=== PATIENT | female | born 1930 | race Caucasian/White ===

== ENCOUNTER 2017-08-30 06:10 | Emergency (ER) | payer MEDICARE, MEDICAID ==
[~2017-08-30] VITALS: Ht 154.9 cm; Wt 54.4 kg
[~2017-08-30 06:10] MED LIST: AC325T PO; AC500T PO; ACIPHEX 20MG; AGGRENOX; ALPR.25T; ASP81TEC PO; ATN25T; ATRV10T; CALC3.7S2 NS; CHOL2000 PO; CLC200NA2 NS; DCS100C PO; DNPZ10T PO; DPAS20025 PO; HYDR-34 PO; HYDR1TAB PO; LVT.025T PO; LVT.05T PO; MAGNESIUM HYDROXIDE; MEMA10TA PO; METO-354; METO5TAB2 PO; NF-ESOM40C; OMEP20CA12 PO; POLY17PO23 GT; POTA8CAP9 PO; SENN1TAB76 PO; SIMV20TA3 PO; SITA100T PO; STOOL SOFTENER 100MG; TRAM50TA2 PO
[2017-08-30] MEDS ORDERED: TRAM50TA2 (06:22)
[2017-08-30] MEDS ORDERED: LINA5TAB (06:22)
[2017-08-30] MEDS ORDERED: LEVO100T7 (06:22)
[2017-08-30] MEDS ORDERED: MIDAZOLAM 2 MG/2 ML (VERSED) VIAL ONE (06:49)
--- NOTE | 2017-08-30 06:49 | ED Neurological Problem ---
General Chief Complaint: Neurological Problems Stated Complaint: SEIZURE Nursing Triage Note: pt brought in by ems with complaint of possible seizure. per NH pt was in wheelchair and started "convulsing". the aid taking care of pt was unsure whether it was seizure or not. pt does not have have known hx of seizures. Nursing Sepsis Screen: No Definite Risk Source: EMS Exam Limitations: clinical condition History of Present Illness Date Seen by Provider: Aug 30, 2017 Time Seen by Provider: 06:26 Initial Comments 86-year-old white female presents from [facility] after possible seizure from the [facility]. 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 The patient's blood pressure was elevated earlier this morning. According to the fdc records the patient has no history of seizure disorder. Patient's family is here and confirms that the patient is a DO NOT RESUSCITATE. They want the patient to have comfort care only. Patient is under the care of Dr. CHOI. Allergies and Home Medications Allergies Coded Allergies: NKANo Known Allergies (Verified Allergy, Unknown, 10/22/07) midazolam (Unverified Allergy, Unknown, 04/06/10) Home Medications Acetaminophen 325 Mg Tablet, 1-2 TAB PO PRN, (Reported) PAIN OR FEVER Aspirin 81 Mg Tabec, 81 MG PO DAILY, (Reported) Calcitonin 3.7 Ml Barrett.pump, 1 SPRAY NS DAILY, (Reported) Cholecalciferol 2,000 Unit Capsule, 2,000 UNIT PO DAILY, (Reported) Dipyridamole/Aspirin 1 Ea Cap, 1 EA PO DAILY, (Reported) Docusate Sodium 100 Mg Capsule, 100 MG PO HS, (Reported) Levothyroxine Sodium 25 Mcg Tablet, 1 TAB PO DAILY, (Reported) Levothyroxine Sodium 50 Mcg Tablet, 1 TAB PO DAILY, (Reported) Metoclopramide Hcl 5 Mg Tablet, 5 MG PO ACHS, (Reported) Omeprazole 20 Mg Capsule.dr, 20 MG PO DAILY, (Reported) Potassium Chloride 8 Meq Capsule.sa, 8 MEQ PO DAILY, (Reported) Senna 1 Ea Tablet, 1 EA PO BID, (Reported) Simvastatin 20 Mg Tablet, 20 MG PO DAILY, (Reported) Sitagliptin Phosphate 100 Mg Tablet, 1 EACH PO DAILY, (Reported) Tramadol Hcl 50 Mg Tablet, 50 MG PO TID, (Reported) Patient Home Medication List Home Medication List Reviewed: Yes Review of Systems Constitutional: no symptoms reported Eyes: No Symptoms Reported Ears, Nose, Mouth, Throat: no symptoms reported Respiratory: no symptoms reported Cardiovascular: no symptoms reported Genitourinary: no symptoms reported : No Musculoskeletal: no symptoms reported, other (chronic contractures) Skin: no symptoms reported Psychiatric/Neurological: See HPI, Other (previous strokes) Endocrine: No Symptoms Reported Hematologic/Lymphatic: No Symptoms Reported Past Xxyraak-Zrrspv-Fyvllm Hx Past Med/Social Hx: Reviewed Nursing Past Med/Soc Hx Patient Social History Alcohol Use: Denies Use Recreational Drug Use: No Smoking Status: Never a Smoker Recent Foreign Travel: No Contact w/Someone Who Travel: No Recent Infectious Disease Expo: No Recent Hopitalizations: Yes Immunizations Up To Date Tetanus Booster (TDap): Unknown PED Vaccines UTD: Yes Date of Pneumonia Vaccine: Jan 12, 2008 Date of Influenza Vaccine: Jan 11, 2011 Past Medical History Surgeries: Yes Respiratory: No Cardiac: No Neurological: Yes Reproductive Disorders: No Gastrointestinal: No Musculoskeletal: Yes (INGUINAL HERNIA REPAIR RIGHT SIDE) Endocrine: Yes Psychosocial: Yes (ALZHIEMERS) Blood Disorders: No Physical Exam Vital Signs Vital Signs - First Documented 08/30/17 06:10 Temp 98.5 Pulse 88 Resp 20 B/P (MAP) 107/ Pulse Ox 96 O2 Delivery Room Air O2 Flow Rate 150.00 Capillary Refill : Less Than 3 Seconds General Appearance: no apparent distress, other (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 I was not possible to do an adequate oral exam on the patient. No active bleeding was noted during her evaluation in the emergency department.) Neck: other (the patient's neck is nontender but it is stiff as is the rest of her back and extremities from contractures.) Respiratory: lungs clear, normal breath sounds Cardiovascular: normal peripheral pulses, regular rate, rhythm Gastrointestinal: normal bowel sounds, non tender, soft Genital/Rectal: other (there is a normal external genital exam. Catheter urine was obtained which was cloudy. The rectal exam was normal. The patient' s rectal exam was normal.) Back: other (2 small bruises were noted over the posterior pelvis over the SI joints. These were old in approximately the size of quarters.) Extremities: other (4 extremity contractures) Neurologic/Psychiatric: other (patient's neurological exam was very limited. However the patient was awake and responded to verbal stimuli. She was nonverbal.) Skin: normal color, warm/dry Progress/Results/Core Measures Results/Orders Lab Results Laboratory Tests Test 08/30/17 06:19 08/30/17 06:52 Range/Units Glucometer 134 H 70-110 MG/DL White Blood Count 12.4 H 4.3-11.0 10^3/uL Red Blood Count 4.36 4.35-5.85 10^6/uL Hemoglobin 13.6 11.5-16.0 G/DL Hematocrit 41 35-52 % Mean Corpuscular Volume 95 80-99 FL Mean Corpuscular Hemoglobin 31 25-34 PG Mean Corpuscular Hemoglobin Concent 33 32-36 G/DL Red Cell Distribution Width 12.8 10.0-14.5 % Platelet Count 265 130-400 10^3/uL Mean Platelet Volume 11.0 H 7.4-10.4 FL Neutrophils (%) (Auto) 79 H 42-75 % Lymphocytes (%) (Auto) 14 12-44 % Monocytes (%) (Auto) 5 0-12 % Eosinophils (%) (Auto) 1 0-10 % Basophils (%) (Auto) 0 0-10 % Neutrophils # (Auto) 9.8 H 1.8-7.8 X 10^3 Lymphocytes # (Auto) 1.8 1.0-4.0 X 10^3 Monocytes # (Auto) 0.7 0.0-1.0 X 10^3 Eosinophils # (Auto) 0.1 0.0-0.3 10^3/uL Basophils # (Auto) 0.0 0.0-0.1 10^3/uL Prothrombin Time 12.9 12.2-14.7 SEC INR Comment 1.0 0.8-1.4 Urine Color YELLOW Urine Clarity VERY CLOUDY H Urine pH 6 5-9 Urine Specific [place] 1.025 H 1.016-1.022 Urine Protein 2+ H NEGATIVE Urine Glucose (UA) NEGATIVE NEGATIVE Urine Ketones NEGATIVE NEGATIVE Urine Nitrite POSITIVE H NEGATIVE Urine Bilirubin NEGATIVE NEGATIVE Urine Urobilinogen 1 NORMAL MG/DL Urine Leukocyte Esterase NEGATIVE NEGATIVE Urine RBC (Auto) 3+ H NEGATIVE Urine RBC RARE /HPF Urine WBC RARE /HPF Urine Squamous Epithelial Cells 5-10 /HPF Urine Crystals NONE /LPF Urine Bacteria LARGE H /HPF Urine Casts NONE /LPF Urine Mucus NEGATIVE /LPF Urine Culture Indicated YES Sodium Level 138 135-145 MMOL/L Potassium Level 4.2 3.6-5.0 MMOL/L Chloride Level 104 98-107 MMOL/L Carbon Dioxide Level 22 21-32 MMOL/L Anion Gap 12 5-14 MMOL/L Blood Urea Nitrogen 27 H 7-18 MG/DL Creatinine 0.73 0.60-1.30 MG/DL Estimat Glomerular Filtration Rate > 60 BUN/Creatinine Ratio 37 Glucose Level 147 H 70-105 MG/DL Calcium Level 9.4 8.5-10.1 MG/DL Total Bilirubin 0.5 0.1-1.0 MG/DL Aspartate Amino Transf (AST/SGOT) 22 5-34 U/L Alanine Aminotransferase (ALT/SGPT) 17 0-55 U/L Alkaline Phosphatase 78 40-136 U/L Troponin I < 0.30 <0.30 NG/ML Total Protein 7.0 6.4-8.2 GM/DL Albumin 4.2 3.2-4.5 GM/DL My Orders Orders - AYSHA LINDQUIST MD Ct Head Wo (08/30/17 06:22) Cbc With Automated Diff (08/30/17 06:22) Comprehensive Metabolic Panel (08/30/17 06:22) Ua Culture If Indicated (08/30/17 06:22) Protime With Inr (08/30/17 06:22) Ekg Tracing (08/30/17 06:22) Troponin I (08/30/17 06:22) Midazolam Injection (Versed Injection) (08/30/17 06:49) Chest 1 View, Ap/Pa Only (08/30/17 06:50) Urine Culture (08/30/17 06:52) Ceftriaxone Injection (Rocephin Injectio (08/30/17 08:45) Vital Signs/I&O 08/30/17 08/30/17 06:10 08:02 Temp 98.5 Pulse 88 77 Resp 20 18 B/P (MAP) 107/ 170/89 (116) Pulse Ox 96 97 O2 Delivery Room Air Room Air O2 Flow Rate 150.00 Progress Progress Note : Time: 08:48 Progress Note The patient's workup in the emergency department demonstrated an unremarkable CT for acute pathology. The patient's chest x-ray was grossly normal. Patient' s laboratory evaluation demonstrated evidence of an acute UTI. I discussed treatment options with the family. It was their wish the patient be allowed to return to the [facility] and she will be more comfortable there. 2 g of Rocephin were given IV. I'll write a prescription for Macrobid for the patient. The patient has recently started Ultram for pain. I recommended we stop the Ultram until Dr. CHOI had a chance to consider whether to continue it. Departure Impression Primary Impression: UTI (urinary tract infection) Qualified Codes: N30.00 - Acute cystitis without hematuria Additional Impression: Seizure Disposition: HOME, SELF-CARE Condition: Improved Departure-Patient Inst. Decision time for Depature: 08:52 Referrals: HILARY CHOI DO (PCP/Family) Primary Care Physician Patient Instructions: Acute Cystitis (DC), Epilepsy in Adults Add. Discharge Instructions: Macrobid as prescribed. Close follow-up Dr. Choi. Stop Ultram until cleared by Dr. Choi. Return if any problems. All discharge instructions reviewed with patient and/or family. Voiced understanding. AYSHA LINDQUIST MD Aug 30, 2017 06:49
[2017-08-30 07:01] LABS: BILIRUBIN,URINE NEGATIVE (NEGATIVE); CLARITY,URINE VERY CLOUDY; COLOR,URINE YELLOW; GLUCOSE, URINE (UA) NEGATIVE (NEGATIVE); KETONES,URINE NEGATIVE (NEGATIVE); LEUKOCYTE ESTERASE ,URINE NEGATIVE (NEGATIVE); NITRITE,URINE POSITIVE (NEGATIVE); PH,URINE 6 (5-9); PROTEIN,URINE 2+ (NEGATIVE); UROBILINOGEN,URINE 1 MG/DL (NORMAL)
[2017-08-30 07:05] LABS: BASOPHILS % (AUTO) 0 % (0-10); EOSINOPHILS # (AUTO) 0.1 10^3/uL (0.0-0.3); EOSINOPHILS % (AUTO) 1 % (0-10); HEMATOCRIT 41 % (35-52); HEMOGLOBIN 13.6 G/DL (11.5-16.0); LYMPHOCYTES # (AUTO) 1.8 X 10^3 (1.0-4.0); LYMPHOCYTES % (AUTO) 14 % (12-44); MEAN CORPUSCULAR HEMOGLOBIN 31 PG (25-34); MEAN CORPUSCULAR HGB CONC 33 G/DL (32-36); MEAN CORPUSCULAR VOLUME 95 FL (80-99); MONOCYTES # (AUTO) 0.7 X 10^3 (0.0-1.0); MONOCYTES % (AUTO) 5 % (0-12); NEUTROPHILS # (AUTO) 9.8 X 10^3 (1.8-7.8); NEUTROPHILS % (AUTO) 79 % (42-75); PLATELET COUNT 265 10^3/uL (130-400); RED BLOOD COUNT 4.36 10^6/uL (4.35-5.85); RED CELL DISTRIBUTION WIDTH 12.8 % (10.0-14.5); WHITE BLOOD COUNT 12.4 10^3/uL (4.3-11.0)
[2017-08-30 07:22] LABS: ALANINE AMINOTRANSFERASE 17 U/L (0-55); ALBUMIN 4.2 GM/DL (3.2-4.5); ALKALINE PHOSPHATASE 78 U/L (40-136); BILIRUBIN,TOTAL 0.5 MG/DL (0.1-1.0); BUN/CREATININE RATIO 37; CALCIUM 9.4 MG/DL (8.5-10.1); CARBON DIOXIDE 22 MMOL/L (21-32); CHLORIDE 104 MMOL/L (98-107); CREATININE SERUM 0.73 MG/DL (0.60-1.30); GFR ESTIMATED > 60; GLUCOSE 147 MG/DL (70-105); POTASSIUM 4.2 MMOL/L (3.6-5.0); SODIUM 138 MMOL/L (135-145)
[2017-08-30 07:41] LABS: BACTERIA,URINE LARGE /HPF; RBC,URINE RARE /HPF; WBC,URINE RARE /HPF
[2017-08-30 07:44] LABS: PROTHROMBIN TIME PATIENT 12.9 SEC (12.2-14.7)
[2017-08-30 08:02] VITALS: BP 170/89
--- NOTE | 2017-08-30 08:09 | Diagnostic Imaging Report ---
PROCEDURE: CT head without contrast. TECHNIQUE: Multiple contiguous axial images were obtained through the brain without the use of intravenous contrast. INDICATION: Seizure COMPARISON: 04/04/2010 FINDINGS: The ventricles and cortical sulci are diffusely prominent. There is no midline shift or mass effect identified. There is no extra axial or intraparenchymal hemorrhage seen. Focal areas of decreased attenuation are seen in the subcortical and periventricular white matter. These likely represent chronic small vessel ischemic changes. Small lacunar infarct is noted in the right basal ganglia. No CT evidence of acute territorial ischemia seen. The bony calvarium is intact. The paranasal sinuses are clear. IMPRESSION: 1. No acute intracranial hemorrhage. No CT evidence of acute territorial ischemia. 2. Findings of chronic small vessel ischemic disease. 3. Marked generalized parenchymal volume loss. Dictated by: Dictated on workstation # [id number]
--- NOTE | 2017-08-30 08:10 | Diagnostic Imaging Report ---
Indication: Altered mental status, seizure like episode. Discussion: Single portable supine view of the chest was obtained. The patient's hand is overlying the right chest which does limit evaluation. Normal heart size. Elevated right hemidiaphragm. No focal consolidation, pleural fluid, or pneumothorax. Impression: 1. Negative limited chest. Dictated by: Dictated on workstation # [id number]
[2017-08-30] MEDS ORDERED: cefTRIAXone INJECTION 2,000 MG in NS (IVPB) 50 ML IV ONE (08:45)
[2017-08-30 10:48] VITALS: BP 129/72
--- OUTSIDE RECORDS SUMMARY | 2017-08-30 16:09 | XMS REPORT | Continuity of Care Document ---
Author Author [facility] Organization [facility] Address Unknown Phone Unavailable Allergies There is no data. Medications There is no data. Problems There is no data. Procedures There is no data. Results There is no data. Encounters ACCT No. Visit Date/Time Discharge Status Pt. Type Provider Facility Loc./Unit Complaint [id number] 08/14/2012 15:38:00 08/14/2012 23:59:59 CLS Outpatient
== END 2017-08-30 10:48 | disposition home or self-care (01) ==
LOC: EDUNIT# 06:10 → ER 06:11
DX: G62.9 Polyneuropathy, unspecified (principal); N39.0 Urinary tract infection, site not specified; G30.9 Alzheimer's disease, unspecified; F02.80 Dementia in other diseases classified elsewhere, unspecified severity, without behavioral disturbance, psychotic disturbance, mood disturbance, and anxiety; Z79.82 Long term (current) use of aspirin; Z88.4 Allergy status to anesthetic agent; Z66 Do not resuscitate; Z98.890 Other specified postprocedural states
CPT/HCPCS: 36415; 70450; 71045; 80053; 81000; 82962; 84484; 85025; 85610; 87088; 87186; 93005; 96365

== ENCOUNTER 2017-09-01 09:39 | Emergency (ER) | payer MEDICARE, MEDICAID ==
[~2017-09-01] VITALS: Ht 154.9 cm; Wt 54.4 kg
[~2017-09-01 09:39] MED LIST changes: +LEVO100T7; +LINA5TAB; +TRAM50TA2
--- OUTSIDE RECORDS SUMMARY | 2017-09-01 09:45 | XMS REPORT | Continuity of Care Document ---
Author Author [facility] Organization [facility] Address Unknown Phone Unavailable Allergies There is no data. Medications There is no data. Problems There is no data. Procedures There is no data. Results Test Result Range Capillary blood glucose measurement by glucometer (mass/volume) - 08/30/17 06: 19 Capillary blood glucose measurement by glucometer (mass/volume) 134 mg/dL 70-110 Complete blood count (CBC) with automated white blood cell (WBC) differential - 08/30/17 06:52 Blood leukocytes automated count (number/volume) 12.4 10*3/uL 4.3-11.0 Blood erythrocytes automated count (number/volume) 4.36 10*6/uL 4.35-5.85 Venous blood hemoglobin measurement (mass/volume) 13.6 g/dL 11.5-16.0 Blood hematocrit (volume fraction) 41 % 35-52 Automated erythrocyte mean corpuscular volume 95 [foz_us] 80-99 Automated erythrocyte mean corpuscular hemoglobin (mass per erythrocyte) 31 pg 25-34 Automated erythrocyte mean corpuscular hemoglobin concentration measurement ( mass/volume) 33 g/dL 32-36 Automated erythrocyte distribution width ratio 12.8 % 10.0-14.5 Automated blood platelet count (count/volume) 265 10*3/uL 130-400 Automated blood platelet mean volume measurement 11.0 [foz_us] 7.4-10.4 Automated blood neutrophils/100 leukocytes 79 % 42-75 Automated blood lymphocytes/100 leukocytes 14 % 12-44 Blood monocytes/100 leukocytes 5 % 0-12 Automated blood eosinophils/100 leukocytes 1 % 0-10 Automated blood basophils/100 leukocytes 0 % 0-10 Blood neutrophils automated count (number/volume) 9.8 10*3 1.8-7.8 Blood lymphocytes automated count (number/volume) 1.8 10*3 1.0-4.0 Blood monocytes automated count (number/volume) 0.7 10*3 0.0-1.0 Automated eosinophil count 0.1 10*3/uL 0.0-0.3 Automated blood basophil count (count/volume) 0.0 10*3/uL 0.0-0.1 Comprehensive metabolic panel - 08/30/17 06:52 Serum or plasma sodium measurement (moles/volume) 138 mmol/L 135-145 Serum or plasma potassium measurement (moles/volume) 4.2 mmol/L 3.6-5.0 Serum or plasma chloride measurement (moles/volume) 104 mmol/L 98-107 Carbon dioxide 22 mmol/L 21-32 Serum or plasma anion gap determination (moles/volume) 12 mmol/L 5-14 Serum or plasma urea nitrogen measurement (mass/volume) 27 mg/dL 7-18 Serum or plasma creatinine measurement (mass/volume) 0.73 mg/dL 0.60-1.30 Serum or plasma urea nitrogen/creatinine mass ratio 37 NRG Serum or plasma creatinine measurement with calculation of estimated glomerular filtration rate > NRG Serum or plasma glucose measurement (mass/volume) 147 mg/dL 70-105 Serum or plasma calcium measurement (mass/volume) 9.4 mg/dL 8.5-10.1 Serum or plasma total bilirubin measurement (mass/volume) 0.5 mg/dL 0.1-1.0 Serum or plasma alkaline phosphatase measurement (enzymatic activity/volume) 78 U/L 40-136 Serum or plasma aspartate aminotransferase measurement (enzymatic activity/ volume) 22 U/L 5-34 Serum or plasma alanine aminotransferase measurement (enzymatic activity/volume ) 17 U/L 0-55 Serum or plasma protein measurement (mass/volume) 7.0 g/dL 6.4-8.2 Serum or plasma albumin measurement (mass/volume) 4.2 g/dL 3.2-4.5 Serum or plasma troponin i.cardiac measurement (mass/volume) - 08/30/17 06:52 Serum or plasma troponin i.cardiac measurement (mass/volume) < ng/ mL <0.30 Complete urinalysis with reflex to culture - 08/30/17 06:52 Urine color determination YELLOW NRG Urine clarity determination VERY CLOUDY NRG Urine pH measurement by test strip 6 5-9 Specific gravity of urine by test strip 1.025 1.016- 1.022 Urine protein assay by test strip, semi-quantitative 2+ NEGATIVE Urine glucose detection by automated test strip NEGATIVE NEGATIVE Erythrocytes detection in urine sediment by light microscopy 3+ NEGATIVE Urine ketones detection by automated test strip NEGATIVE NEGATIVE Urine nitrite detection by test strip POSITIVE NEGATIVE Urine total bilirubin detection by test strip NEGATIVE NEGATIVE Urine urobilinogen measurement by automated test strip (mass/volume) 1 mg/dL NORMAL Urine leukocyte esterase detection by dipstick NEGATIVE NEGATIVE Automated urine sediment erythrocyte count by microscopy (number/high power field) RARE NRG Automated urine sediment leukocyte count by microscopy (number/high power field ) RARE NRG Bacteria detection in urine sediment by light microscopy LARGE NRG Squamous epithelial cells detection in urine sediment by light microscopy 5-10 NRG Crystals detection in urine sediment by light microscopy NONE NRG Casts detection in urine sediment by light microscopy NONE NRG Mucus detection in urine sediment by light microscopy NEGATIVE NRG Complete urinalysis with reflex to culture YES NRG PT panel in platelet poor plasma by coagulation assay - 08/30/17 06:52 Prothrombin time (PT) in platelet poor plasma by coagulation assay 12.9 s 12.2-14.7 INR in platelet poor plasma or blood by coagulation assay 1.0 0.8-1.4 Bacterial urine culture - 08/30/17 06:52 Bacterial urine culture [id number] NRG COLONY COUNT >100,000/ML NRG FTX;REPORTABLE REPORTED BY [facility] 08/31/17 14:05 NRG Encounters ACCT No. Visit Date/Time Discharge Status Pt. Type Provider Facility Loc./Unit Complaint [id number] 08/14/2012 15:38:00 08/14/2012 23:59:59 CLS Outpatient [id number] 08/30/2017 06:27:00 Document Registration
[2017-09-01 10:41] LABS: BASOPHILS % (AUTO) 0 % (0-10); EOSINOPHILS # (AUTO) 0.1 10^3/uL (0.0-0.3); EOSINOPHILS % (AUTO) 1 % (0-10); HEMATOCRIT 39 % (35-52); HEMOGLOBIN 12.8 G/DL (11.5-16.0); LYMPHOCYTES # (AUTO) 1.3 X 10^3 (1.0-4.0); LYMPHOCYTES % (AUTO) 12 % (12-44); MEAN CORPUSCULAR HEMOGLOBIN 31 PG (25-34); MEAN CORPUSCULAR HGB CONC 33 G/DL (32-36); MEAN CORPUSCULAR VOLUME 93 FL (80-99); MEAN PLATELET VOLUME 11.2 FL (7.4-10.4); MONOCYTES # (AUTO) 1.2 X 10^3 (0.0-1.0); MONOCYTES % (AUTO) 10 % (0-12); NEUTROPHILS # (AUTO) 8.9 X 10^3 (1.8-7.8); NEUTROPHILS % (AUTO) 78 % (42-75); PLATELET COUNT 211 10^3/uL (130-400); RED BLOOD COUNT 4.12 10^6/uL (4.35-5.85); RED CELL DISTRIBUTION WIDTH 12.7 % (10.0-14.5); WHITE BLOOD COUNT 11.5 10^3/uL (4.3-11.0)
[2017-09-01 11:00] LABS: BUN/CREATININE RATIO 24; CALCIUM 9.5 MG/DL (8.5-10.1); CARBON DIOXIDE 23 MMOL/L (21-32); CHLORIDE 108 MMOL/L (98-107); CREATININE SERUM 0.74 MG/DL (0.60-1.30); GFR ESTIMATED > 60; GLUCOSE 138 MG/DL (70-105); POTASSIUM 3.7 MMOL/L (3.6-5.0); SODIUM 142 MMOL/L (135-145)
[2017-09-01 11:22] LABS: FREE T4 (FREE THYROXINE) 1.32 NG/DL (0.70-1.48)
[2017-09-01] MEDS ORDERED: fentaNYL INJECTION 100 MCG/2 ML AMP IVP ONE (11:45)
[2017-09-01] MEDS ORDERED: OXYC5SOL19 PO (12:23)
[2017-09-01] MEDS ORDERED: AMOX400S9 PO (12:23)
--- NOTE | 2017-09-01 12:23 | ED General ---
General Chief Complaint: General Problems/Pain Stated Complaint: AMS-SQUIRMING Nursing Triage Note: PT ARRIVED PER EMS PT SENT FROM [facility], PT IS AWAKE BUT NON VERBAL. PT DOES HAVE FREQUENT MOVEMENT OF ARMS AND LEGS. PT NON TENDER OF ABD ON LT PALPATION. PT DOES HAVE SOME GRIMACING. PT IS CURRENTLY BEING TREATED FOR UTI Nursing Sepsis Screen: No Definite Risk Source of Information: Patient, Old Records Exam Limitations: Physical Impairments History of Present Illness Date Seen by Provider: Sep 01, 2017 Time Seen by Provider: 09:41 Initial Comments This 86-year-old woman is brought to the emergency room via EMS from the long term. She has severe advanced dementia and has appeared agitated or possibly in pain today. Vital signs are within normal limits. Patient was also seen on August 30 for similar symptoms. She was thought to have had a seizure on that day. She had been taking some tramadol and seizure was thought to have been possibly precipitated by tramadol use. Patient is almost entirely non-verbal. Family and friends are uncertain of what might be causing her agitation. There was no known trauma. She has bruising on her forearms which is believed to be related to her prior IV. Patient's daughters arrived to support the patient. They assert that above all they want the patient to be comfortable and wanted to avoid aggressive workups and therapies given her advanced dementia. Allergies and Home Medications Allergies Coded Allergies: NKANo Known Allergies (Verified Allergy, Unknown, 10/22/07) midazolam (Unverified Allergy, Unknown, 04/06/10) Home Medications Acetaminophen 325 Mg Tablet, 1-2 TAB PO PRN, (Reported) PAIN OR FEVER Amoxicillin 400 Mg/5 Ml Susp.recon, 12.5 ML PO BID Prescribed by: DUSTY GALLAGHER on 09/01/17 1223 Aspirin 81 Mg Tabec, 81 MG PO DAILY, (Reported) Calcitonin 3.7 Ml Beulah.pump, 1 SPRAY NS DAILY, (Reported) Cholecalciferol 2,000 Unit Capsule, 2,000 UNIT PO DAILY, (Reported) Dipyridamole/Aspirin 1 Ea Cap, 1 EA PO DAILY, (Reported) Docusate Sodium 100 Mg Capsule, 100 MG PO HS, (Reported) Levothyroxine Sodium 25 Mcg Tablet, 1 TAB PO DAILY, (Reported) Levothyroxine Sodium 50 Mcg Tablet, 1 TAB PO DAILY, (Reported) Metoclopramide Hcl 5 Mg Tablet, 5 MG PO ACHS, (Reported) Omeprazole 20 Mg Capsule.dr, 20 MG PO DAILY, (Reported) Oxycodone HCl 5 Mg/5 Ml Solution, 2.5-5 MG PO Q6H PRN for PAIN-MODERATE TO SEVERE Prescribed by: DUSTY GALLAGHER on 09/01/17 1223 Potassium Chloride 8 Meq Capsule.sa, 8 MEQ PO DAILY, (Reported) Senna 1 Ea Tablet, 1 EA PO BID, (Reported) Simvastatin 20 Mg Tablet, 20 MG PO DAILY, (Reported) Sitagliptin Phosphate 100 Mg Tablet, 1 EACH PO DAILY, (Reported) Tramadol Hcl 50 Mg Tablet, 50 MG PO TID, (Reported) Patient Home Medication List Home Medication List Reviewed: Yes Review of Systems Constitutional: see HPI EENTM: other (periodontal disease) Respiratory: no symptoms reported Cardiovascular: no symptoms reported Gastrointestinal: no symptoms reported Genitourinary: no symptoms reported Musculoskeletal: see HPI Skin: see HPI Psychiatric/Neurological: See HPI Hematologic/Lymphatic: No Symptoms Reported Immunological/Allergic: no symptoms reported Past Gkxzmmm-Blwcdy-Niouga Hx Patient Social History Alcohol Use: Denies Use Recreational Drug Use: No Smoking Status: Never a Smoker Recent Foreign Travel: No Contact w/Someone Who Travel: No Recent Infectious Disease Expo: No Recent Hopitalizations: Yes Physical Abuse: No Sexual Abuse: No Immunizations Up To Date Tetanus Booster (TDap): Unknown PED Vaccines UTD: Yes Date of Pneumonia Vaccine: Jan 12, 2008 Date of Influenza Vaccine: Jan 11, 2011 Past Medical History Surgeries: Yes Respiratory: No Cardiac: No Neurological: Yes Dementia Reproductive Disorders: No Gastrointestinal: No Musculoskeletal: Yes (INGUINAL HERNIA REPAIR RIGHT SIDE) Endocrine: Yes Cancer: No Psychosocial: Yes (ALZHIEMERS) Nursing Suicide Risk Score: 0 Blood Disorders: No Physical Exam Vital Signs Vital Signs - First Documented 09/01/17 09:40 Temp 97.4 Pulse 77 Resp 18 B/P (MAP) 142/77 (98) Pulse Ox 97 O2 Delivery Room Air Capillary Refill : Less Than 3 Seconds General Appearance: WD/WN, Mild Distress HEENT: PERRL/EOMI, Normal ENT Inspection, Other (poor dentition. Evidence of inflammatory changes around the gingiva and under the tongue. There is a purplish color to the tongue suspicious for ecchymosis) Neck: Normal Inspection Respiratory: Lungs Clear, Normal Breath Sounds, No Accessory Muscle Use, No Respiratory Distress Cardiovascular: Regular Rate, Rhythm, No Edema, No Murmur Gastrointestinal: Normal Bowel Sounds, Non Tender, Soft Extremity: Normal Inspection, No Pedal Edema Neurologic/Psychiatric: Alert, Oriented x3, No Motor/Sensory Deficits, Normal Mood/Affect Progress/Results/Core Measures Suspected Sepsis Recent Fever Within 48 Hours: No Infection Criteria Present: None New/Unexplained Altered Menta: No Sepsis Screen: No Definite Risk SIRS Temperature:97.4 Pulse: 77 Respiratory Rate: 18 Laboratory Tests 09/01/17 10:32: White Blood Count 11.5H Blood Pressure 142 /77 Mean: 98 Laboratory Tests 09/01/17 10:32: Creatinine 0.74, Platelet Count 211 Results/Orders Lab Results Laboratory Tests Test 09/01/17 10:32 Range/Units White Blood Count 11.5 H 4.3-11.0 10^3/uL Red Blood Count 4.12 L 4.35-5.85 10^6/uL Hemoglobin 12.8 11.5-16.0 G/DL Hematocrit 39 35-52 % Mean Corpuscular Volume 93 80-99 FL Mean Corpuscular Hemoglobin 31 25-34 PG Mean Corpuscular Hemoglobin Concent 33 32-36 G/DL Red Cell Distribution Width 12.7 10.0-14.5 % Platelet Count 211 130-400 10^3/uL Mean Platelet Volume 11.2 H 7.4-10.4 FL Neutrophils (%) (Auto) 78 H 42-75 % Lymphocytes (%) (Auto) 12 12-44 % Monocytes (%) (Auto) 10 0-12 % Eosinophils (%) (Auto) 1 0-10 % Basophils (%) (Auto) 0 0-10 % Neutrophils # (Auto) 8.9 H 1.8-7.8 X 10^3 Lymphocytes # (Auto) 1.3 1.0-4.0 X 10^3 Monocytes # (Auto) 1.2 H 0.0-1.0 X 10^3 Eosinophils # (Auto) 0.1 0.0-0.3 10^3/uL Basophils # (Auto) 0.0 0.0-0.1 10^3/uL Sodium Level 142 135-145 MMOL/L Potassium Level 3.7 3.6-5.0 MMOL/L Chloride Level 108 H 98-107 MMOL/L Carbon Dioxide Level 23 21-32 MMOL/L Anion Gap 11 5-14 MMOL/L Blood Urea Nitrogen 18 7-18 MG/DL Creatinine 0.74 0.60-1.30 MG/DL Estimat Glomerular Filtration Rate > 60 BUN/Creatinine Ratio 24 Glucose Level 138 H 70-105 MG/DL Calcium Level 9.5 8.5-10.1 MG/DL Thyroid Stimulating Hormone (TSH) 3.09 0.35-4.94 UIU/ML Free Thyroxine 1.32 0.70-1.48 NG/DL My Orders Orders - DUSTY SHARMA MD Basic Metabolic Panel (09/01/17 09:52) Cbc With Automated Diff (09/01/17 09:52) Thyroid Stimulating Hormone (09/01/17 09:52) Free T4 (Free Thyroxine) (09/01/17 09:52) Saline Lock/Iv-Start (09/01/17 09:52) Fentanyl Injection (Sublimaze Injection (09/01/17 11:45) Medications Given in ED Current Medications Medications Dose Ordered Sig/Mary Route Start Time Stop Time Status Last Admin Dose Admin Fentanyl Citrate 25 mcg ONCE ONCE IVP 09/01/17 11:45 09/01/17 11:46 DC 09/01/17 11:50 25 MCG Vital Signs/I&O 09/01/17 12:29 Pulse 75 Resp 18 B/P (MAP) 142/77 (98) Pulse Ox 100 Capillary Refill : Less Than 3 Seconds Blood Pressure Mean: 98 Progress Note : Progress Note At family's request patient was treated with fentanyl. She immediately was able to rest and sleep. Vital signs remained stable. A source of her agitation was ultimately not identified. Urine culture from prior urine specimen was not yet reported out. Patient was suspected of having discomfort from periodontal disease. As a next course of action family wanted to try treating with amoxicillin. They also requested medication to control her pain and make her comfortable. The liquid oxycodone was selected. Departure Impression Primary Impression: Agitation Additional Impression: Periodontal disease Disposition: HOME, SELF-CARE Condition: Improved Departure-Patient Inst. Decision time for Depature: 12:00 Referrals: HILARY CHOI DO (PCP/Family) Primary Care Physician Patient Instructions: Periodontal Disease Add. Discharge Instructions: Completely antibiotics as prescribed. You may use oxycodone as prescribed for moderate to severe pain. Follow-up with Dr. Choi as soon as possible. Consider discussing hospice as a means of managing symptoms. You may return to care if symptoms are worsening. All discharge instructions reviewed with patient and/or family. Voiced understanding. Scripts Amoxicillin (Amoxicillin) 400 Mg/5 Ml Susp.recon 12.5 ML PO BID, #250 ML Prov: DUSTY SHARMA MD 09/01/17 Oxycodone HCl (Oxycodone HCl) 5 Mg/5 Ml Solution 2.5-5 MG PO Q6H PRN for PAIN-MODERATE TO SEVERE, #30 EA Prov: DUSTY SHARMA MD 09/01/17 Copy Copies To 1: HILARY CHOI JOSHUA T MD Sep 01, 2017 12:23
[2017-09-01 12:29] VITALS: BP 142/77
== END 2017-09-01 12:42 | disposition home or self-care (01) ==
LOC: EDUNIT# 09:39 → ER 09:41
DX: R45.1 Restlessness and agitation (principal); K05.6 Periodontal disease, unspecified; G30.9 Alzheimer's disease, unspecified; F02.80 Dementia in other diseases classified elsewhere, unspecified severity, without behavioral disturbance, psychotic disturbance, mood disturbance, and anxiety; Z79.82 Long term (current) use of aspirin; Z87.19 Personal history of other diseases of the digestive system; Z88.4 Allergy status to anesthetic agent
CPT/HCPCS: 36415; 80048; 84439; 84443; 85025; 96374